=== PATIENT | female | born 1985 | race Caucasian/White ===

== ENCOUNTER 2020-05-13 09:18 | Day surgery (SDC) | payer BC ==
[2020-05-11 17:44] VITALS: BMI 25.6
[2020-05-13] MEDS ORDERED: COCAINE HCL 4% TOPICAL SOLUTION 4 ML BOTTLE TP ONE ×2 (10:35→11:30)
[2020-05-13] MEDS ORDERED: BUPIVACAINE HCL/EPINEPHRINE/PF 30 ML VIAL IJ ONE ×2 (10:48→12:40)
[2020-05-13] MEDS ORDERED: MIDAZOLAM HCL 2 MG/2 ML SINGLE DOSE VIAL ONE (10:52)
[2020-05-13] MEDS ORDERED: fentaNYL CITRATE 250 MCG/5 ML VIAL ONE ×2 (10:52→12:36)
[2020-05-13] MEDS ORDERED: PROPOFOL 20 ML ONE ×4 (10:52)
[2020-05-13] MEDS ORDERED: ALBUTEROL SO4 HFA INHALER IH ONE (10:53)
[2020-05-13] MEDS ORDERED: LIDOCAINE HCL 2% JELLY (5 ML/TUBE) ONE (10:53)
[2020-05-13] MEDS ORDERED: BACITRACIN 15 GM TUBE TOPICAL OINTMENT ONE (11:12)
[2020-05-13] MEDS ORDERED: BUPIVACAINE 0.25% /EPI 1:200,000 10 ML VIAL INF ONE ×2 (11:30)
[2020-05-13] MEDS ORDERED: ONDANSETRON 4 MG/2 ML VIAL ONE ×2 (12:35→15:03)
[2020-05-13] MEDS ORDERED: DEXAMETHASONE SOD PHOSPHATE 4 MG/1 ML VIAL ONE (12:35)
[2020-05-13] MEDS ORDERED: ceFAZolin SODIUM 1 GM VIAL ONE (12:35)
[2020-05-13] MEDS ORDERED: KETOROLAC TROMETHAMINE 30 MG/1 ML VIAL ONE (12:35)
[2020-05-13] MEDS ORDERED: LIDOCAINE HCL/PF 2% SDV 5ML VIAL ONE (12:35)
[2020-05-13] MEDS ORDERED: BSS (NA/CA/MG/K) BALANCED SALT SOLUTION OPHTH SOLN 15 ML BOTTLE ONE (14:16)
[2020-05-13] MEDS ORDERED: ONDANSETRON 4 MG/2 ML VIAL IVPUSH PRN (14:35)
[2020-05-13] MEDS ORDERED: PROMETHAZINE HCL 25 MG/1 ML VIAL IVPUSH PRN (14:35)
[2020-05-13] MEDS ORDERED: oxyCODONE HCL 5 MG TABLET PO PRN ×2 (14:35)
[2020-05-13 15:32] VITALS: TEMP 98.7
[2020-05-13 17:13] VITALS: BP 103/62; PULSE 76
--- NOTE | 2020-05-17 12:32 | OP ---
DATE OF OPERATION: 05/13/2020 PREOPERATIVE DIAGNOSES: 1. Bilateral nasal vestibular stenosis. 2. Acquired deformity of nose. POSTOPERATIVE DIAGNOSES: 1. Bilateral nasal vestibular stenosis. 2. Acquired deformity of nose. PROCEDURES: 1. Open rhinoplasty with septoplasty. 2. Bilateral nasal vestibular stenosis repair with bilateral steel rod buster grafts. 3. Costochondral graft to nose. ATTENDING SURGEON: Anson Paredes MD ANESTHESIA: General endotracheal. ESTIMATED BLOOD LOSS: 50 mL. SPECIMEN: None. DRAINS: None. COMPLICATIONS: None. CONDITION: Stable to recovery room, extubated. INDICATIONS: The patient is a 34-year-old female who presents with bilateral nasal airway obstruction. She has undergone several previous sinus and septum surgeries. The patient has residual middle vault narrowing as well as residual septal deviation. Given the patient's bilateral nasal airway obstruction she is brought back to the operating room today for repair of her bilateral nasal vestibular stenosis with steel rod buster grafts. Given her multiple previous surgeries, she understands she may require a costochondral graft. The risks, benefits and alternatives of the surgery were discussed with the patient preoperatively in detail and all questions were answered. The risks include but are not limited to bleeding, infection, pain, need for revision or further surgery, residual nasal airway obstruction, nasal septal perforation, damage to neighboring structures including nerves, arteries, veins and tendons. The patient understands these risks and has elected to proceed with surgery. PROCEDURE: After proper identification and marking of the patient in the preoperative holding area, the patient was transported to the operating room, placed supine on the table while noninvasive anesthesia monitors were applied. Intravenous access was established. General anesthesia was administered and the patient was intubated without difficulty. A throat pack was placed. SCD boots were applied to bilateral lower extremities. Intravenous antibiotics were then given. The head of the bed was turned 90 degrees and the patient was placed onto a stockinette pumper head. At this point the nasal hairs were trimmed and a transcolumellar incision was designed with bilateral intranasal extensions. The patient's nose was then infiltrated with 0.25% Marcaine with 1:200,000 units of epinephrine. The dorsum, nasal sidewalls, nasal tip, and bilateral ala were infiltrated. Once this was completed, the septum was evaluated and there was noted to be evidence of missing septal cartilage. There was also noted to be an area of residual deviation of the L-strut into the left nasal passage with a prominent edge of cartilage causing ulceration of the nasal septal mucosa on the left side. There was also noted to be a bony spur extending along the right nasal floor. The local anesthesia was then used to infiltrate the septum and at this point 4% cocaine-soaked cottonoids were placed into bilateral nasal passages. Next, the patient's face was prepped and draped in usual sterile fashion. After a timeout was performed, attention was turned towards the open rhinoplasty. A No. 15 blade was used to make the transcolumellar incision and intranasal extensions along the membranous portion of the caudal septum and along bilateral alar rims was performed. The dorsal nasal skin flap was then elevated just above the level of the lower lateral cartilages. The pocket dissection was continued up over the dorsum of the nose and a Cade elevator was used to elevate subperiosteally over bilateral nasal bones. At this point a Windsor tip scissor was used to dissect between the nasal domes and they were carefully retracted and the caudal edge of the septum was encountered. The caudal and dorsal edges of the L-strut were then further dissected and a 15-blade was used to incise the mucoperichondrium. At this point a mucoperichondrial dissection was performed over the residual nasal septal cartilage. The area of residual deviation with the sharp edge of cartilage causing ulceration of the septal mucosa on the left side was then confirmed and this was excised. There was noted to be significant scarring along the submucoperichondrial plane once the posterior edge of the cartilage was reached and, therefore, dissection was stopped in order to prevent a septal perforation. The dissection then proceeded down in a subperiosteal fashion over the right nasal floor and the bony spur was removed with a pituitary grasper. With the septoplasty completed, the mucoperichondrial flaps were reapproximated using a 4-0 plain gut suture in a running horizontal mattress fashion. Given the patient's lack of available septal cartilage for middle vault reconstruction, the decision was made to harvest a right costochondral graft. The right anterior chest had been prepped and draped sterilely as well and the medial portion of the inframammary fold had been marked. At this point gloves were changed and fresh instruments were used for the rib harvest. The same local anesthetic mixture was injected along the right inframammary fold along the planned incision line. No. 15 blade was then used to make the incision and the dissection carried down through the full-thickness subcutaneous tissue. The skin flaps were then retracted and the fascia overlying the underlying rectus muscle was incised horizontally. The muscle fibers were then retracted horizontally and the underlying rib at the inframammary fold level was exposed. At this point the mucoperichondrium was incised and a circumferential subperichondrial dissection was performed. At this point a No. 15 blade was used to incise the rib cartilage at either end of the dissection and the costochondral graft was harvested and placed into a specimen cup with sterile saline. The chest pocket was then filled with saline. Valsalva maneuver revealed no evidence of an air leak and, therefore, hemostasis was achieved. The fascial edges were then reapproximated with a 3-0 Vicryl in a simple running fashion and the inframammary fold closure was performed with a 3-0 Biosyn in a buried deep dermal fashion followed by a 3-0 Biosyn in a running subcuticular fashion. At this point on the back table bilateral steel rod buster grafts were carved from the costochondral graft with care taken to harvest straight pieces which measured approximately 2.5 to 3 mm in width. Once the steel rod buster grafts were prepared, attention was turned back towards the nose. At this point a No. 15 blade was used to separate the upper lateral cartilages from the dorsal septum. A conservative contouring of the dorsal cartilaginous septum was then performed with a No. 15 blade and a Fomon scissor. Next, a No. 3 rasp was used to contour the nasal bony dorsum. A mild open-roof deformity was created once adequate contouring was achieved and, therefore, bilateral nasal bone in-fracturing was required. Local anesthesia was injected along bilateral nasal vestibules at the alar bases and a No. 15 blade was used to make bilateral intranasal stab incisions and a subperiosteal dissection was performed along bilateral nasal sidewalls. At this point curved guarded osteotomes were used to perform low-to-low bilateral nasal bone in-fracturing. The open-roof deformity was noted to be nicely corrected and an excellent nasal width and side profile contour were achieved. At this point attention was turned towards the reconstruction of the middle vault. Beginning on the patient's right side mobilization of the upper lateral cartilage was performed with a Mcculloch elevator in order to make space for the steel rod buster graft. Once this was achieved, one of the steel rod buster grafts was brought up to the nose and placed in between the right upper lateral cartilage and dorsal nasal septum. It was secured in place using a 4-0 PDS suture in an interrupted horizontal mattress fashion. There was noted to be correction of the middle vault narrowing and, therefore, attention was turned towards the left side where the exact same procedure was performed with a separate steel rod buster graft and, therefore, only one side will be dictated. Once bilateral steel rod buster grafts were in place, the nasal pocket was irrigated and hemostasis was ensured. The dorsal nasal skin flap was then redraped and there was noted to be appropriate width of the middle vault. Therefore, the transcolumellar incision was closed with a 6-0 nylon in a simple interrupted fashion. The intranasal portions were closed with 5-0 plain guts in simple interrupted fashions. At this point given the preoperative ulceration of the septal mucosa on the left side, bilateral silastic sheets were placed along the septal mucosa and were secured to each other with a 3-0 silk suture tied over an air knot. At this point the face was cleansed and Mastisol and Steri-Strips were placed over the nasal dorsum and around the nasal tip followed by an Aquaplast nasal splint. Once this had dried, a moustache dressing was placed. The throat pack was removed and the stomach was evacuated of all contents. A sterile dressing was applied to the right inframammary fold consisting of Mastisol, Steri-Strips, dry gauze and Tegaderm. At this point the patient was slowly awakened and extubated without incident and was transported to recovery room in stable condition. ANSON PAREDES M.D. [id number]
== END 2020-05-13 16:40 | disposition home or self-care (01) ==
LOC: FASU 09:18
PROVIDERS: ATTEND Plastic Surgery
PROC: 0WB80ZZ Excision of Chest Wall, Open Approach (ICD-10-PCS; 2020-05-13)
PROC: 09RKX7Z Replacement of Nasal Mucosa and Soft Tissue with Autologous Tissue Substitute, External Approach (ICD-10-PCS; 2020-05-13)
PROC: 09UK07Z Supplement Nasal Mucosa and Soft Tissue with Autologous Tissue Substitute, Open Approach (ICD-10-PCS; principal; 2020-05-13 11:42)
DX: J34.89 Other specified disorders of nose and nasal sinuses (principal); M95.0 Acquired deformity of nose
CPT/HCPCS: 84703; 94760